=== PATIENT | female | born 1945 | race Caucasian/White ===

== ENCOUNTER 2019-02-02 17:30 | Inpatient (IN) | payer BC ==
[~2019-02-02] VITALS: Ht 154.9 cm; Wt 65.3 kg
--- NOTE | 2019-02-02 17:59 | NUR ---
Dr. Rock (neuro) at bedside for eval
--- NOTE | 2019-02-02 18:22 | NUR ---
CALLED NURSING SUP. FOR TELE BED
[2019-02-02] MEDS ORDERED: SERT25TA PO (18:35)
[2019-02-02] MEDS ORDERED: FAMO20TA8 PO (18:35)
[2019-02-02] MEDS ORDERED: AMLO5TAB4 PO (18:35)
[2019-02-02] MEDS ORDERED: IV NS 0.9% 1,000 ML BAG IV ONE (19:00)
--- NOTE | 2019-02-02 19:05 | NUR ---
[facility] PAGED, PATCHER WOOD WELDER
--- NOTE | 2019-02-02 19:15 | NUR ---
report given to xiao rosa kvng.
--- NOTE | 2019-02-02 19:33 | NUR ---
TELE 310-2
[2019-02-02 19:44] LABS: APPEARANCE,URINE Clear (CLEAR); BILIRUBIN,URINE Negative (NEGATIVE); BLOOD, URINE Moderate Ery/uL (NEGATIVE); COLOR,URINE Yellow (YELLOW); KETONES,URINE Negative (NEGATIVE); LEUKOCYTE ESTERASE ,URINE Moderate (NEGATIVE); NITRITE, URINE Negative (NEGATIVE); PH,URINE 5.5 (5.0-8.0); PROTEIN,URINE 100 mg/dl (NEGATIVE); UGLUCOSE Negative (NEGATIVE); UROBILINOGEN,URINE 0.2 EU/dL (0.2)
--- NOTE | 2019-02-02 19:50 | NUR ---
REPORT GIVEN TO FOUNDRY MELT SUPERVISORLEANNE REDDING FOR ROGER.
--- NOTE | 2019-02-02 20:00 | NUR ---
KIER DRIER NOTES RECEIVED PT FROM ER VIA DOMINIQUE IN STABLE CONDITION. PT A/O X4 AND ABLE TO MAKE NEEDS KNOWN. RESPIRATIONS EVEN AND UNLABORED WITH NO S/S OF ACUTE DISTRESS OR SOB NOTED. PT WITH LAC #18G PATENT AND INTACT. NO COMPLAINTS OF PAIN AT THIS TIME. ORIENTED PT TO UNIT AND ROOM. SAFETY MEASURES IN PLACE WITH BED IN LOWEST LOCKED POSITION WITH SIDE RAILS UP X2. CALL LIGHT WITHIN REACH. WILL CONTINUE TO MONITOR.
--- NOTE | 2019-02-02 20:05 | NUR ---
TANSFERREDD TO 310-2 IN STABLE CONDITION
[2019-02-02 20:10] VITALS: BP 127/63
[2019-02-02 20:39] LABS: BASOPHILS # (AUTO) 0.1 /CMM (0.0-0.2); BASOPHILS % (AUTO) 0.5 % (0.0-2.0); EOSINOPHILS % (AUTO) 1.8 % (0.0-6.0); HEMATOCRIT 38 % (33-45); LYMPHOCYTES # (AUTO) 0.2 /CMM (0.8-4.8); LYMPHOCYTES % (AUTO) 1.8 % (20.0-44.0); MEAN CORPUSCULAR HGB CONC 35 g/dl (31.0-36.0); MEAN CORPUSCULAR VOLUME 92 fL (82-100); MONOCYTES # (AUTO) 1.8 /CMM (0.1-1.30); MONOCYTES % (AUTO) 12.6 % (2.0-12.0); NEUTROPHILS # (AUTO) 11.6 /CMM (1.8-8.9); NEUTROPHILS % (AUTO) 83.3 % (43.0-81.0); PLATELET COUNT (AUTO) 178 /CMM (150-450); RED BLOOD CELL COUNT(AUTO) 4.07 MIL/uL (4.0-5.2)
[2019-02-02 21:00] LABS: ALANINE AMINOTRANSFERASE 45 U/L (12-78); ALBUMIN 2.6 g/dL (3.4-5.0); ALKALINE PHOSPHATASE 313 U/L (46-116); ASPARTATE AMINOTRANSFERASE 44 U/L (15-37); BILIRUBIN,DIRECT 0.6 mg/dL (0.0-0.2); BILIRUBIN,TOTAL 1.4 mg/dL (0.2-1.0); CALCIUM, SERUM 9.3 mg/dL (8.5-10.1); CARBON DIOXIDE 24 mmol/L (21-32); CHLORIDE 92 mmol/L (98-107); GLUCOSE 111 mg/dL (74-106); SODIUM SERUM 129 mmol/L (136-145); TOTAL PROTEIN, SERUM 6.8 g/dL (6.4-8.2); UREA NITROGEN, BLOOD 59 mg/dL (7-18)
[2019-02-02 21:06] LABS: POTASSIUM 2.3 mmol/L (3.5-5.1)
[2019-02-02] MEDS ORDERED: IV NS 0.9% 1,000 ML IV PRN (21:18)
[2019-02-02] MEDS ORDERED: Z GUARD REMEDY 2 OZ OINT TP PRN (21:30)
[2019-02-02] MEDS ORDERED: MAGNESIUM HYDROXIDE 30 ML UDC PO PRN (21:30)
[2019-02-02] MEDS ORDERED: MAG HYDROX/AL HYDROX/SIMETH 30 ML UDC PO PRN (21:30)
[2019-02-02] MEDS ORDERED: HYDROCODONE/APAP 5/325MG 1 EACH TABLET PO PRN (21:30)
[2019-02-02] MEDS ORDERED: ZOLPIDEM TARTRATE 5 MG TABLET PO PRN (21:30)
[2019-02-02] MEDS ORDERED: ACETAMINOPHEN 325 MG TABLET PO PRN (21:30)
[2019-02-02] MEDS ORDERED: ONDANSETRON HCL/PF 4 MG/2 ML VIAL IVP PRN (21:30)
--- NOTE | 2019-02-02 21:30 | NUR ---
SHEAR GRINDER OPERATOR HELPER NOTES RECEIVED CALL FROM LAB WITH CRITICAL LAB VALUE OF POTASSIUM @ 2.3. DR. MERRITT MADE AWARE.
[2019-02-02] MEDS ORDERED: POTASSIUM CL. PREMIX PERIPHER. 50 ML IV SCH ×2 (22:00→22:30)
[2019-02-02] MEDS ORDERED: POTASSIUM CHLORIDE 20 MEQ TAB.PRT.SR PO ONE (22:30)
[2019-02-02 23:20] LABS: THYROID STIMULATING HORMONE 0.513 uIU/mL (0.358-3.74)
[2019-02-02] MEDS: POTASSIUM CL. PREMIX PERIPHER. 50 ML IV SCH (23:55)
[2019-02-03] VITALS: BP 123/71
[2019-02-03] MEDS: POTASSIUM CL. PREMIX PERIPHER. 50 ML IV SCH ×2 (00:57→01:56)
[2019-02-03 04:00] VITALS: BP 117/65
--- NOTE | 2019-02-03 07:00 | NUR ---
SQL MANAGER NOTES PT IN BED AWAKE AND ABLE TO MAKE NEEDS KNOWN. PT A/O X4. RESPIRATIONS EVEN AND UNLABORED WITH NO S/S OF ACUTE DISTRESS OR SOB NOTED THROUGHOUT SHIFT. PT WITH LAC #18G PATENT AND INTACT RUNNING NS@75ML/HR. NO COMPLAINTS OF PAIN AT THIS TIME. PT WITH POTASSIUM LAB LOW, IT WAS REPLACED. SAFETY MEASURES IN PLACE WITH BED IN LOWEST LOCKED POSITION WITH SIDE RAILS UP X2. CALL LIGHT WITHIN REACH. WILL ENDORSE TO ONCOMING NURSE FOR ROGER.
[2019-02-03 07:16] LABS: BASOPHILS # (AUTO) 0.1 /CMM (0.0-0.2); BASOPHILS % (AUTO) 0.4 % (0.0-2.0); EOSINOPHILS % (AUTO) 1.3 % (0.0-6.0); HEMATOCRIT 36 % (33-45); HEMOGLOBIN 12.4 g/dL (11.5-14.8); LYMPHOCYTES # (AUTO) 0.4 /CMM (0.8-4.8); LYMPHOCYTES % (AUTO) 2.8 % (20.0-44.0); MEAN CORPUSCULAR HGB CONC 35 g/dl (31.0-36.0); MEAN CORPUSCULAR VOLUME 92 fL (82-100); MONOCYTES # (AUTO) 1.6 /CMM (0.1-1.30); MONOCYTES % (AUTO) 12.4 % (2.0-12.0); NEUTROPHILS # (AUTO) 10.7 /CMM (1.8-8.9); NEUTROPHILS % (AUTO) 83.1 % (43.0-81.0); PLATELET COUNT (AUTO) 168 /CMM (150-450); RED BLOOD CELL COUNT(AUTO) 3.87 MIL/uL (4.0-5.2); WHITE BLOOD COUNT (AUTO) 12.9 K/uL (4.3-11.0)
--- NOTE | 2019-02-03 07:20 | NUR ---
TELE/RN OPENING NOTE THE PATIENT IS RECEIVED IN BED. ALERT AND ORIENTED X4. ABLE TO MAKE NEEDS KNOWN VERBALLY. DENIES SOB. RESPIRATION REGULAR AND UNLABORED. DENIES PAIN. THE PATIENT IS IN ROOM AIR. QR 60 WITH BBB. BED LOW AND LOCKED. SIDE RAILS UP X3. CALL LIGHT WITHIN REACH. WILL CONTINUE TO MONITOR.
[2019-02-03 07:42] LABS: ALANINE AMINOTRANSFERASE 42 U/L (12-78); ALBUMIN 2.1 g/dL (3.4-5.0); ALKALINE PHOSPHATASE 287 U/L (46-116); ASPARTATE AMINOTRANSFERASE 33 U/L (15-37); BILIRUBIN,TOTAL 1.1 mg/dL (0.2-1.0); CALCIUM, SERUM 8.7 mg/dL (8.5-10.1); CARBON DIOXIDE 24 mmol/L (21-32); CHLORIDE 100 mmol/L (98-107); CREATININE 3.5 mg/dL (0.6-1.3); GLUCOSE 108 mg/dL (74-106); MAGNESIUM 2.5 mg/dL (1.8-2.4); PHOSPHORUS 2.6 mg/dL (2.5-4.9); SODIUM SERUM 135 mmol/L (136-145); TOTAL PROTEIN, SERUM 5.7 g/dL (6.4-8.2); UREA NITROGEN, BLOOD 58 mg/dL (7-18)
[2019-02-03 07:45] LABS: CHOLESTEROL 109 mg/dL (<200); HDL CHOLESTEROL 10 mg/dL (40-60); LDL 61 mg/dL (0-99); THYROID STIMULATING HORMONE 0.812 uIU/mL (0.358-3.74); TRIGLYCERIDES 199 mg/dL (30-150)
[2019-02-03 07:46] LABS: POTASSIUM 2.7 mmol/L (3.5-5.1)
[2019-02-03 08:00] VITALS: BP_SYST 115; BP_SYST 123; BP_DIAS 61; BP_DIAS 74
[2019-02-03] MEDS ORDERED: POTASSIUM CHLORIDE 20 MEQ TAB.PRT.SR PO ONE (10:30)
[2019-02-03] MEDS ORDERED: Potassium Chloride 10 MEQ, LIDOCAINE HCL/PF 1% 1 ML in IV NS 0.9% 50 ML IV SCH (10:30)
[2019-02-03] MEDS ORDERED: OMEP20CA10 PO (10:48)
[2019-02-03] MEDS ORDERED: MELO-105 PO (10:48)
[2019-02-03] MEDS ORDERED: DIAZ5TAB4 PO (10:48)
[2019-02-03] MEDS ORDERED: ATOR20TA PO (10:48)
--- NOTE | 2019-02-03 13:30 | NUR ---
MS/RN NOTE MRI WITH CONTRAST IS NOT DONE DUE TO KIDNEY FUNCTION.
[2019-02-03 15:25] LABS: APPEARANCE,URINE SL CLOUDY (CLEAR); BILIRUBIN,URINE NEGATIVE (NEGATIVE); BLOOD, URINE 3+ Ery/uL (NEGATIVE); COLOR,URINE YELLOW (YELLOW); KETONES,URINE NEGATIVE (NEGATIVE); LEUKOCYTE ESTERASE ,URINE 2+ (NEGATIVE); NITRITE, URINE NEGATIVE (NEGATIVE); PROTEIN,URINE 1+ mg/dl (NEGATIVE); UGLUCOSE NEGATIVE (NEGATIVE); UROBILINOGEN,URINE 0.2 EU/dL (0.2)
[2019-02-03 15:41] LABS: CREATININE, URINE 44.9 MG/DL (30.0-125.0)
[2019-02-03 16:00] VITALS: BP 129/62
[2019-02-03 16:21] LABS: BACTERIA,URINE Many /HPF (None Seen); SQUAMOUS EPITHELIAL CELL,UR Few /HPF (None Seen); WBC,URINE 51-80 /HPF (0-3)
[2019-02-03 16:57] LABS: EOSINOPHIL,URINE Rare
--- NOTE | 2019-02-03 17:50 | NUR ---
TELE/RN ORTHOSTATIC BP CHECK SUPINE : BP 125/67 AND PULSE 71 SITTING: BP 136/65 AND PULSE 74 STANDING: BP 143/76 AND PULSE 85
--- NOTE | 2019-02-03 18:07 | NUR ---
TELE/RN CLOSING NOTE THE PATIENT IS ALERT AND ORIENTED X4. IN ROOM AIR AND SATURATION IS AT 98%. RESPIRATION REGULAR AND UNLABORED. DENIES SOB. DENIES PAIN. EXTERNAL TELE BOX READING IS SR 68 WITH BBB. THE PATIENT IN NO APPARENT DISTRESS. RIGHT HAND G 20 PATENT AND NORMAL SALINE INFUSING AT 75ML/HR AND NO S/S INFILTRATION NOTED. BED LOW AND LOCKED. SIDE RAILS UP X3. CALL LIGHT WITHIN REACH. WILL ENDORSE TO INSULATION BOARD COATER OPERATOR. Addendum: 02/03/19 at 1812 by JARON HARDING RN NO EPISODE OF SYNCOPE DURING THE SHIFT.
--- NOTE | 2019-02-03 19:41 | NUR ---
SCHOOL PHOTOGRAPHER OPENING NOTES RECEIVED PATIENT IN BED AWAKE, ALERT AND ORIENTED X4, VERBALLY RESPONSIVE, ABLE TO MAKE NEEDS KNOWN. FAMILY AT BEDSIDE. BREATHING EVEN AND UNLABORED. NO SOB NOTED. TOLERATING ROOM AIR. NO COMPLAINTS OF PAIN OR DISCOMFORT. NO FACIAL GRIMACING. IV ON RIGHT HAND INFILTRATED. DAY NURSE TO TAKE OFF. WILL PUT IN A NEW ONE. SKIN DRY AND WARM TO TOUCH. AFEBRILE. ALL OTHER NEEDS MET. SAFETY MEASURES IN PLACE. CALL LIGHT WITHIN REACH. WILL CONTINUE TO MONITOR.
[2019-02-03 21:27] VITALS: BP 123/65
--- NOTE | 2019-02-03 21:41 | NUR ---
LEANNE MS NOTES NEW IV STARTED ON LEFT AC G#20. INTACT AND PATENT. GOOD BLOOD RETURN. IVF CONTINUED. WILL CONTINUE TO MONITOR. Addendum: 02/04/19 at 0701 by LINNEA HEAD RN ERROR;PT IS TELE.
[2019-02-04 00:23] VITALS: BP 125/76
[2019-02-04] MEDS: IV NS 0.9% 1,000 ML IV PRN ×3 (01:18→20:50)
[2019-02-04 04:20] VITALS: BP 125/56
[2019-02-04 06:51] LABS: CREATINE KINASE, TOTAL 25 U/L (26-192)
[2019-02-04 06:52] LABS: BASOPHILS % (AUTO) 0.4 % (0.0-2.0); EOSINOPHILS % (AUTO) 0.9 % (0.0-6.0); HEMATOCRIT 34 % (33-45); HEMOGLOBIN 11.7 g/dL (11.5-14.8); LYMPHOCYTES # (AUTO) 0.5 /CMM (0.8-4.8); LYMPHOCYTES % (AUTO) 3.6 % (20.0-44.0); MEAN CORPUSCULAR HGB CONC 35 g/dl (31.0-36.0); MEAN CORPUSCULAR VOLUME 93 fL (82-100); MONOCYTES # (AUTO) 1.6 /CMM (0.1-1.30); MONOCYTES % (AUTO) 12.1 % (2.0-12.0); NEUTROPHILS # (AUTO) 11.1 /CMM (1.8-8.9); PLATELET COUNT (AUTO) 178 /CMM (150-450); RED BLOOD CELL COUNT(AUTO) 3.62 MIL/uL (4.0-5.2); WHITE BLOOD COUNT (AUTO) 13.3 K/uL (4.3-11.0)
--- NOTE | 2019-02-04 07:01 | NUR ---
STATISTICAL METHODS TEACHER CLOSING NOTES PATIENT RESTING IN BED. NO ACUTE CHANGES THROUGHOUT SHIFT. BREATHING EVEN AND UNLABORED. NO SOB NOTED. TOLERATING ROOM AIR. NO COMPLAINTS OF PAIN OR DISCOMFORT. IV ON IV ON LEFT AC INTACT AND PATENT WITH IVF INFUSING. ALL OTHER NEEDS MET. SAFETY MEASURES IN PLACE. CALL LIGHT WITHIN REACH. WILL ENDORSE TO ONCOMING NURSE FOR ROGER.
[2019-02-04 07:21] LABS: ALANINE AMINOTRANSFERASE 38 U/L (12-78); ALKALINE PHOSPHATASE 271 U/L (46-116); ASPARTATE AMINOTRANSFERASE 29 U/L (15-37); BILIRUBIN,TOTAL 0.9 mg/dL (0.2-1.0); CALCIUM, SERUM 8.4 mg/dL (8.5-10.1); CARBON DIOXIDE 22 mmol/L (21-32); CHLORIDE 104 mmol/L (98-107); CREATININE 2.7 mg/dL (0.6-1.3); GLUCOSE 100 mg/dL (74-106); MAGNESIUM 2.2 mg/dL (1.8-2.4); PHOSPHORUS 2.8 mg/dL (2.5-4.9); SODIUM SERUM 137 mmol/L (136-145); TOTAL PROTEIN, SERUM 5.4 g/dL (6.4-8.2); UREA NITROGEN, BLOOD 50 mg/dL (7-18)
[2019-02-04 08:00] VITALS: BP 132/72
[2019-02-04] MEDS: POTASSIUM CHLORIDE 20 MEQ TAB.PRT.SR PO SCH ×3 (09:42→11:37)
--- NOTE | 2019-02-04 10:51 | NUR ---
RN OPENING NOTES PT RESTING IN BED. NO APPARENT S/S OF PAIN, DISTRESS OR SOB AT THIS TIME. PT TELE MONITORED SR WITH BBB AND OCCASIONAL PVCS. PT HAS A LEFT AC #20 IV INTACT AND RUNNING NS @200 ML/HR. SAFETY PRECAUTIONS IN PLACE, BED IN LOWEST LOCKED POSITION, X2 SIDE RAILS UP AND CALL LIGHT WITHIN REACH. WILL CONTINUE TO MONITOR.
[2019-02-04] MEDS: CEFTRIAXONE 1 G in IV D5W 50 ML IV SCH (13:10)
[2019-02-04 16:00] VITALS: BP 127/70
--- NOTE | 2019-02-04 19:30 | NUR ---
RN NOTES RECEIVED PT. AWAKE ON BED, A/OX4, AMBULATORY DENIES PAIN, NO SOB, CALL LIGHT WITHIN REACH, [id number], CONTINUE TO MONITOR
[2019-02-04 20:00] VITALS: BP 127/66
[2019-02-05] MEDS: IV NS 0.9% 1,000 ML IV PRN (02:22)
[2019-02-05 05:00] VITALS: BP_SYST 131; BP_SYST 144; BP_SYST 149; BP_DIAS 70; BP_DIAS 78; BP_DIAS 79
--- NOTE | 2019-02-05 06:24 | NUR ---
RN NOTES AWAKE, DENIES PAIN, NO SOB, MORNING CARE RENDERED, CALL LIGHT WITHIN REACH, [id number], PT. NEEDS ATTENDED
--- NOTE | 2019-02-05 07:40 | NUR ---
MS/RN - Assessment Patient is awake, A/O x 4, no complaints overnight, denies chest pain/dizziness at this time, no apparent distress noted, afebrile, stable on room air. Saline lock on the LAC is patent, intact, with no signs of infiltration. Skin is intact. Patient is ambulatory with steady gait. Plan of care discussed with patient and in agreement. Will continue with current medical management.
[2019-02-05 07:49] LABS: BASOPHILS % (AUTO) 0.2 % (0.0-2.0); HEMATOCRIT 34 % (33-45); HEMOGLOBIN 11.5 g/dL (11.5-14.8); LYMPHOCYTES # (AUTO) 0.6 /CMM (0.8-4.8); LYMPHOCYTES % (AUTO) 4.8 % (20.0-44.0); MEAN CORPUSCULAR HGB CONC 34 g/dl (31.0-36.0); MEAN CORPUSCULAR VOLUME 94 fL (82-100); MONOCYTES # (AUTO) 1.1 /CMM (0.1-1.30); MONOCYTES % (AUTO) 8.3 % (2.0-12.0); NEUTROPHILS # (AUTO) 11.3 /CMM (1.8-8.9); NEUTROPHILS % (AUTO) 85.7 % (43.0-81.0); PLATELET COUNT (AUTO) 222 /CMM (150-450); RED BLOOD CELL COUNT(AUTO) 3.66 MIL/uL (4.0-5.2); WHITE BLOOD COUNT (AUTO) 13.2 K/uL (4.3-11.0)
[2019-02-05 08:00] VITALS: BP 119/61
[2019-02-05 08:01] LABS: CALCIUM, SERUM 8.4 mg/dL (8.5-10.1); CARBON DIOXIDE 20 mmol/L (21-32); CHLORIDE 108 mmol/L (98-107); CREATININE 2.1 mg/dL (0.6-1.3); GLUCOSE 97 mg/dL (74-106); PHOSPHORUS 3.3 mg/dL (2.5-4.9); POTASSIUM 3.6 mmol/L (3.5-5.1); SODIUM SERUM 139 mmol/L (136-145); UREA NITROGEN, BLOOD 35 mg/dL (7-18)
--- NOTE | 2019-02-05 09:30 | NUR ---
MS/RN - S/b Dr. Madrid Seen and examined by Dr. Madrid with orders, noted and carried out.
--- NOTE | 2019-02-05 10:15 | NUR ---
MS/RN - S/b Hospitalist Seen and examined by Sayda Rodriguez NP with no new order at this time.
[2019-02-05] MEDS: ASPIRIN 81 MG TAB.CHEW PO SCH (10:26)
[2019-02-05] MEDS: CEFTRIAXONE 1 G in IV D5W 50 ML IV SCH (11:35)
[2019-02-05 13:11] LABS: PTH, INTACT 22 pg/mL (15-65)
--- NOTE | 2019-02-05 14:30 | NUR ---
MS/RN - Notes Patient resting comfortably, denies pain, no apparent distress seen. Son at bedside.
--- NOTE | 2019-02-05 18:48 | NUR ---
MS/RN - End of shift summary No new events seen. Anticipate discharge home tomorrow, follow-up with Dr. Madrid in one week. Will continue with current medical management.
--- NOTE | 2019-02-05 19:20 | NUR ---
RN Notes Received patient awake, alert and oriented x4. HOB elevated, on room air and tolerated well. Denies any pain and discomfort. IV access on left AC patent and intact. Plan of care discussed with patient and verbalized understanding. Safety measures and fall precaution observed. Kept comfortable and attended with call light within reach. Will continue to monitor patient.
[2019-02-05 20:00] VITALS: BP 152/78
[2019-02-05 22:00] VITALS: BP 152/78
--- NOTE | 2019-02-06 07:16 | NUR ---
RN Notes Patient slept well overnight, no significant change in condition noted. Denies any pain and discomfort. Ambulates with steady gait. All needs attended. Will endorse accordingly.
--- NOTE | 2019-02-06 07:27 | NUR ---
MS RN OPENING NOTES RECEIVED PT IN BED, AWAKE, A/O X4. TOLERATING RA, WITH NO ACUTE RESPIRATORY DISTRESS. PT DENIES PAIN AT THIS MOMENT. PT DENIES ANY CONCERNS AND QUESTIONS AT THIS TIME. PT AWARE OF PLAN WHEN GETS DISCHARGED; PT ALSO STATED SHE'S READY TO GET DISCHARGE. PIV TO LAC G20, FLUSHED WITH NS,INTACT AND OPERATIONAL. PT KEPT COMFORTABLE IN BED. PT'S BED IN LOWEST, LOCKED POSITION, WITH SR X2. WILL CONTINUE PLAN OF CARE.
[2019-02-06 08:00] VITALS: BP 134/75
[2019-02-06 08:08] LABS: *SPE A/G RATIO 0.9 (0.7-1.7); *SPE ALBUMIN 2.3 g/dL (2.9-4.4); *SPE ALPHA-1-GLOBULIN 0.5 g/dL (0.0-0.4); *SPE ALPHA-2-GLOBULIN 0.8 g/dL (0.4-1.0); *SPE BETA GLOBULIN 0.7 g/dL (0.7-1.3); *SPE GLOBULIN, TOTAL 2.6 g/dL (2.2-3.9); *SPE M-SPIKE Not Observed g/dL (Not Observed); *SPEGAMMA GLOBULIN 0.6 g/dL (0.4-1.8)
[2019-02-06] MEDS: ASPIRIN 81 MG TAB.CHEW PO SCH (08:10)
[2019-02-06] MEDS ORDERED: ASPI-1169 PO (10:36)
[2019-02-06] MEDS ORDERED: CEFT1VIA15 IV (10:37)
[2019-02-06] MEDS ORDERED: LEVO750T21 PO (10:37)
[2019-02-06] MEDS: CEFTRIAXONE 1 G in IV D5W 50 ML IV SCH (11:07)
[2019-02-06 11:18] LABS: BASOPHILS # (AUTO) 0.1 /CMM (0.0-0.2); BASOPHILS % (AUTO) 0.6 % (0.0-2.0); EOSINOPHILS % (AUTO) 1.1 % (0.0-6.0); HEMATOCRIT 32 % (33-45); LYMPHOCYTES # (AUTO) 0.7 /CMM (0.8-4.8); LYMPHOCYTES % (AUTO) 5.9 % (20.0-44.0); MEAN CORPUSCULAR HGB CONC 34 g/dl (31.0-36.0); MEAN CORPUSCULAR VOLUME 93 fL (82-100); MONOCYTES # (AUTO) 0.8 /CMM (0.1-1.30); MONOCYTES % (AUTO) 6.7 % (2.0-12.0); NEUTROPHILS # (AUTO) 10.5 /CMM (1.8-8.9); NEUTROPHILS % (AUTO) 85.7 % (43.0-81.0); PLATELET COUNT (AUTO) 253 /CMM (150-450); RED BLOOD CELL COUNT(AUTO) 3.44 MIL/uL (4.0-5.2); WHITE BLOOD COUNT (AUTO) 12.3 K/uL (4.3-11.0)
[2019-02-06 11:36] LABS: CALCIUM, SERUM 8.1 mg/dL (8.5-10.1); CARBON DIOXIDE 23 mmol/L (21-32); CHLORIDE 105 mmol/L (98-107); GLUCOSE 126 mg/dL (74-106); POTASSIUM 3.3 mmol/L (3.5-5.1); SODIUM SERUM 138 mmol/L (136-145); UREA NITROGEN, BLOOD 38 mg/dL (7-18)
--- NOTE | 2019-02-06 12:59 | NUR ---
MS CYLINDER PRESS OPERATOR NOTES PT TO DISCHARGE HOME WITH HOMEHEALTH. DG/VENITA MADE AWARE OF PT AND GAVE INFORMATION. PT DENIES ANY PAIN OR DISCOMFORT. ALL NEEDS ATTENDED AND CARE PROVIDED. REVIEWED AND SIGNED DISCHARGE SUMMARY AND INVENTORY LIST BY PATIENT; ALL BELONGINGS WITH THE PT. NO PRESCRIPTION GIVEN TO PT. COBOL APPLICATION DEVELOPER CC CALLED DIRECTLY [facility] FOR THE ORAL ANTIBIOTICS FOR PT; PT AWARE. REMOVED PIV TO LEFT AC, APPLIED DRY DRESSING. PT ACCOMPANIED BY SON VIA PRIVATE CAR TO HOME. CHEF'S ASSISTANT ESCORTED PT TO THE LOBBY VIA WHEELCHAIR. PT LEFT THE UNIT AT 1245. CN AND COBOL APPLICATION DEVELOPER CC AWARE.
== END 2019-02-06 12:48 | disposition home health service (06) | DRG 871 ==
LOC: ER 17:30 → TELE 19:40 → MED 02-04 10:22
PROVIDERS: ADMIT Student in an Organized Health Care Education/Training Program; ATTEND Nurse Practitioner Acute Care
DX: A41.9 Sepsis, unspecified organism (principal); N17.0 Acute kidney failure with tubular necrosis; E44.0 Moderate protein-calorie malnutrition; N39.0 Urinary tract infection, site not specified; R17 Unspecified jaundice; E87.1 Hypo-osmolality and hyponatremia; E86.0 Dehydration; E87.6 Hypokalemia; D72.829 Elevated white blood cell count, unspecified; Z68.27 Body mass index [BMI] 27.0-27.9, adult; I12.9 Hypertensive chronic kidney disease with stage 1 through stage 4 chronic kidney disease, or unspecified chronic kidney disease; N18.9 Chronic kidney disease, unspecified; B96.20 Unspecified Escherichia coli [E. coli] as the cause of diseases classified elsewhere; K21.9 Gastro-esophageal reflux disease without esophagitis; Z87.442 Personal history of urinary calculi; I65.22 Occlusion and stenosis of left carotid artery
CPT/HCPCS: 36415; 70450-TC; 70551-TC; 71045-TC; 76770-TC; 80048-TC; 80053-TC; 80061-TC; 80076-TC; 81000-TC; 82550-TC; 82570-TC; 82962-TC; 83605-TC; 83735-TC; 83880; 83970; 84100-TC; 84155; 84155-TC; 84165; 84300-TC; 84443-TC; 84484-TC; 85025-TC; 85730-TC; 87040-TC; 87081-TC; 87086-TC; 87186-TC; 87806; 93307-TC; 93880-TC; 97116-TC; 97530-TC; A4216; G0378; J0696; J3480; J3490; J7030; J7060

== ENCOUNTER 2021-12-24 11:12 | Emergency (ER) | payer BC ==
[~2021-12-24] VITALS: Ht 152.4 cm; Wt 61.2 kg
[~2021-12-24 11:12] MED LIST: AMLO5TAB4 PO; ASPI-1169 PO; ATOR20TA PO; CEFT1VIA15 IV; DIAZ5TAB4 PO; FAMO20TA8 PO; LEVO750T21 PO; MELO-105 PO; OMEP20CA15 PO; SERT25TA PO
--- NOTE | 2021-12-24 11:30 | NUR ---
AUBREE C/O L KNEE PAIN SINCE YESTERDAY. ALSO NOTICED A LUMP AT L KNEE AREA 6/10 PS WHEN WALKING. WILL CONTINUE TO MONITOR THE PATIENT.
--- NOTE | 2021-12-24 11:32 | NUR ---
DR BAUMAN AT THE BEDSIDE
[2021-12-24] MEDS ORDERED: IBUP-1955 PO (12:12)
--- NOTE | 2021-12-24 12:15 | NUR ---
Patient discharged to home in stable condition. Written and verbal after care instructions given. Patient verbalizes understanding of instruction.
[2021-12-24 12:18] VITALS: BP 134/90
== END 2021-12-24 12:19 | disposition home or self-care (01) ==
LOC: ER 11:12
DX: M70.42 Prepatellar bursitis, left knee (principal); M25.562 Pain in left knee; I10 Essential (primary) hypertension; Z79.899 Other long term (current) drug therapy; Y93.89 Activity, other specified